=== PATIENT | female | born 1975 | race Caucasian/White ===

== ENCOUNTER → 2018-11-20 | Outpatient (CLI) | payer OTHER ==
[~2018-11-20] MED LIST: IBU800 MG PO; PREDNISONE50 MG PO; ZOFRAN4 MG PO
== END | disposition home or self-care (01) ==
LOC: US 09:21
DX: R10.2 Pelvic and perineal pain (principal)

== ENCOUNTER → 2019-01-03 | Outpatient (CLI) | payer OTHER ==
--- NOTE | ~2019-01-03 | HM ---
[place], [place] HOLTER MONITOR REPORT NAME: [facility] UNIT #: [id number] ROOM: DOCTOR: MARGARITO ANG MD BIRTHDATE: [birth year] DOS: HOLTER MONITOR REPORT INTERPRETATION: The patient remained in sinus rhythm throughout the entire period. Minimum heart rate is 61, maximum heart rate is 145, average is 91 beats per minute. The patient remained in sinus rhythm to sinus tachycardia, few episodes of sinus tachycardia. No other ventricular or supraventricular dysrhythmia. No significant PVCs or PACs are present. No significant pauses. FINAL IMPRESSION: Normal sinus rhythm with few episodes of sinus tachycardia with a maximum heart rate of 145. Resting average heart rate is also slightly elevated to be 91 beats per minute. No ventricular or supraventricular dysrhythmia. No significant pauses. MARGARITO ANG MD CM:HOLTER:HOLTER MONITOR REPORT [id number] MARGARITO ANG MD
== END | disposition home or self-care (01) ==
LOC: CARD 10:00
DX: R00.2 Palpitations (principal)

== ENCOUNTER → 2024-04-24 | Outpatient (CLI) | payer OTHER | END | disposition home or self-care (01) | LOC: US 02:40 | PROVIDERS: ATTEND Nurse Practitioner Family | DX: R93.89 Abnormal findings on diagnostic imaging of other specified body structures (principal) ==

== ENCOUNTER → 2024-06-04 | Outpatient (CLI) | payer OTHER | END | disposition home or self-care (01) | LOC: US 02:08 | PROVIDERS: ATTEND Nurse Practitioner Family | DX: N83.292 Other ovarian cyst, left side (principal) ==